=== PATIENT | male | born 1990 | race Caucasian/White ===

== ENCOUNTER 2020-06-21 12:15 | Emergency (ER) | payer BC, SELFPAY ==
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
--- NOTE | ~2020-06-21 | XR_ITS ---
XR ankle RT min 3V 06/21/2020 13:48 INDICATION: Right ankle pain PROCEDURE: 4 views right ankle COMPARISON: No prior studies for comparison. FINDINGS: Fracture, dislocation or subluxation is not identified. Ankle mortise intact. There are sma ll degenerative calcaneal enthesophytes. The soft tissues appear within normal limits. No foreign [place] dies are identified. IMPRESSION: 1: NO ACUTE BONE OR JOINT ABNORMALITY IDENTIFIED. Reviewed, dictated and finalized at location B.
--- NOTE | ~2020-06-21 | CT_ITS ---
EXAMINATION: CT cervical spine wo con DATE: 06/21/2020 13:27 INDICATION: Neck pain TECHNIQUE: Computed tomography (CT) of the cervical spine was performed without intravenous contrast. The dose-length product was 633 mGy-cm. Automated exposure control and iterative reconstruction tech nique were employed. COMPARISON: No prior studies for comparison. FINDINGS: Straightening of cervical lordosis. Vertebral body and disc heights are preserved. Lung api francisco are unremarkable. No paraspinal soft tissue abnormality. No fracture or traumatic malalignment. O dontoid process within normal limits. No evidence for perched facet. Craniovertebral junction is unre markable. IMPRESSION: 1. No acute abnormality of the cervical spine. Reviewed, dictated and finalized at location B.
[2020-06-21 12:37] VITALS: BP 143/67; PULSE 98; RESP 20; TEMP 36.9; O2SAT 100
[2020-06-21 13:08] VITALS: RESP 20; O2SAT 98
[2020-06-21 14:40] VITALS: BP 156/84; PULSE 85; RESP 14; O2SAT 99
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
== END 2020-06-21 15:17 | disposition home or self-care (01) ==
PROVIDERS: Emergency Provider General Practice; PCP Family Medicine
DX: S39.012A Strain of muscle, fascia and tendon of lower back, initial encounter (principal); S29.012A Strain of muscle and tendon of back wall of thorax, initial encounter; S16.1XXA Strain of muscle, fascia and tendon at neck level, initial encounter; S93.401A Sprain of unspecified ligament of right ankle, initial encounter; S46.912A Strain of unspecified muscle, fascia and tendon at shoulder and upper arm level, left arm, initial encounter; V49.40XA Driver injured in collision with unspecified motor vehicles in traffic accident, initial encounter
CPT/HCPCS: 72072; 72110; 72125; 73030; 73610; 99284

== ENCOUNTER → 2020-06-29 15:55 | Outpatient (CLI) | payer BC, SELFPAY ==
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
== END ==
PROVIDERS: PCP Family Medicine; Visit Provider Nurse Practitioner Family
DX: S49.91XA Unspecified injury of right shoulder and upper arm, initial encounter (principal); X58.XXXA Exposure to other specified factors, initial encounter
CPT/HCPCS: 73000